=== PATIENT | female | born 2000 | race African-American/Black ===

== ENCOUNTER 2019-11-30 14:57 | Emergency (ER) | payer BC ==
[~2019-11-30] VITALS: Ht 162.6 cm; Wt 51.8 kg
[2019-11-30] MEDS ORDERED: PENICILLIN G BENZATHINE LA 1.2 MU TBX IM STA (16:35)
[2019-11-30] MEDS ORDERED: SODIUM CHLORIDE 0.9% 50ML 50 ML ONE (17:21)
[2019-11-30] MEDS ORDERED: IOPAMIDOL 370 MG/ML 200 ML INFUS..BTL INJ ONE (17:21)
[2019-11-30] MEDS ORDERED: PENICILLIN G BENZATHINE LA 1.2 MU TBX ONE (17:54)
--- NOTE | 2019-11-30 18:12 | Diagnostic Imaging Report ---
EXAMINATION: PA and lateral views of the chest. COMPARISON: None CLINICAL HISTORY: Neck lump DISCUSSION: Lines/tubes: None. Lungs: The lungs are well inflated and clear. No pneumonia or pulmonary edema. Pleura: No pleural effusion or pneumothorax. Heart and mediastinum: The cardiomediastinal silhouette is normal. Bones and soft tissues: No acute bony abnormalities. IMPRESSION: No acute cardiopulmonary abnormalities. Signed by: Dr. Matthew Raymond M.D. on 11/30/2019 6:10 PM
--- NOTE | 2019-11-30 19:07 | Diagnostic Imaging Report ---
History: Left cervical lymphadenopathy Comparison studies: None Technique: Axial, coronal and sagittal images from the skull base to the thoracic inlet. Coronal and sagittal images reconstructed from the axial data. Intravenous contrast: 100 cc of Omnipaque 300. Dose modulation, iterative reconstruction, and/or weight based adjustment of the mA/kV was utilized to reduce the radiation dose to as low as reasonably achievable. Findings: Soft tissues: No abnormalities. Masses: None. Lymph nodes: Left level 2 mildly enlarged lymph nodes, with oval-shaped, measuring up to 1.5 cm in lesser diameter. The remaining lymph nodes are normal in size. Vessels: Arteries and veins are patent. Glands (thyroid, parotid and submandibular): Normal in size and symmetric. No masses. Orbits: No abnormalities. Paranasal sinuses: Small mucus retention cysts at the right maxillary sinus. The remaining paranasal sinuses are clear. Temporal bones: No abnormalities. Skull base and facial bones: Intact. Cervical spine: Patent canal and foramina. Mild reversal of the lordosis centered at C5 IMPRESSION: 1. Mildly enlarged left level 2 lymph nodes, favored to be reactive, clinical follow-up recommended. Signed by: DR Sha Luong M.D. on 11/30/2019 7:05 PM
[2019-11-30] MEDS ORDERED: CLINDAMYCIN HC150 MG PO (19:29)
[2019-11-30] MEDS ORDERED: MEDROL4 MG PO (19:30)
[2019-11-30 19:54] VITALS: BP 141/83
== END 2019-11-30 19:49 | disposition home or self-care (01) ==
LOC: FSED 14:57
DX: J02.0 Streptococcal pharyngitis (principal); L04.0 Acute lymphadenitis of face, head and neck
CPT/HCPCS: 70491; 71046; 80053; 81025; 83518; 85025; 87400; 96372; 99284; J0561; Q9967

== ENCOUNTER 2020-10-22 08:55 | Emergency (ER) | payer BC ==
[~2020-10-22] VITALS: Ht 162.6 cm; Wt 56.7 kg
[~2020-10-22 08:55] MED LIST: CLINDAMYCIN HC150 MG PO; MEDROL4 MG PO
[2020-10-22] MEDS ORDERED: PREDNISONE20 MG PO (09:16)
[2020-10-22] MEDS ORDERED: AZITHROMYCIN500 MG PO (09:16)
== END 2020-10-22 09:23 | disposition home or self-care (01) ==
LOC: FSED 09:09
DX: J02.9 Acute pharyngitis, unspecified (principal)
CPT/HCPCS: 99282